=== PATIENT | male | born 1990 | race Caucasian/White ===

== ENCOUNTER 2016-10-29 18:00 | Emergency (ER) | payer MEDICAID ==
[~2016-10-29] VITALS: Ht 167.6 cm; Wt 56.1 kg
[2016-10-29] MEDS ORDERED: SODIUM CHLORIDE 0.9% 1,000ML IVBOLUS ONE (19:00)
[2016-10-29] MEDS ORDERED: SODIUM CHLORIDE FLUSH 10ML SYR IVF ONE (19:00)
[2016-10-29] MEDS ORDERED: KETOROLAC 30 MG/1 ML IVPush ONE (19:00)
[2016-10-29 19:08] LABS: HEMOGLOBIN 13.8 g/dL (13.7-18.0)
[2016-10-29 19:16] LABS: BLOOD UREA NITROGEN 11 mg/dL (7-18)
[2016-10-29] MEDS ORDERED: KETOROLAC 30 MG/1 ML ONE (19:19)
[2016-10-29 19:47] VITALS: BP 107/74
== END 2016-10-29 19:50 | disposition home or self-care (01) ==
LOC: ED 18:59
DX: J18.9 Pneumonia, unspecified organism (principal); F12.10 Cannabis abuse, uncomplicated
CPT/HCPCS: 36415; 71010; 80048; 82040; 83605; 85025; 96361; 96374; 99285; J1885; J7030